=== PATIENT | male | born 1955 | race African-American/Black ===

== ENCOUNTER 2018-05-04 09:50 | Emergency (ER) | payer OTHER ==
--- NOTE | 2018-05-04 10:21 | RAD ---
PORTABLE CHEST 1 VIEW: Date: 05/04/18 Time: 0915 hours HISTORY: Chest pain. FINDINGS: The heart size is normal. The lungs are expanded without focal areas of consolidation, pneumothorax, or pleural effusions. IMPRESSION: No radiographic evidence of acute cardiopulmonary process. POS: [facility]
[2018-05-04 10:29] LABS: #Basophils 0.1 thou/uL (0.0-0.2); #Lymphocytes 1.1 thou/uL (1.20-3.40); #Monocytes 0.9 thou/uL (0.11-0.59); %Basophils 0.8 % (0.0-1.0); %Eosinophils 0.5 % (0.0-10.0); %Monocytes 10.9 % (0.0-10.0); %Neutrophils 73.8 % (42.0-75.0); Hemoglobin 16.7 g/dL (14.0-18.0); Mean Corpuscular HGB CONC 32.1 g/dL (32.0-36.0); Mean Corpuscular Hemoglobin 29.6 pg (27.0-31.0); Mean Corpuscular Volume 92.2 fL (78.0-98.0); Mean Platelet Volume 8.4 fL (7.4-10.4); Platelet Count 248 thou/uL (130-400); RBC Distribution Width 13.1 % (11.5-14.5); Red Blood Cell (RBC) Count 5.63 mill/uL (4.70-6.10); White Blood Cell (WBC) Count 8.1 thou/uL (4.8-10.8)
[2018-05-04 10:49] LABS: ALT (SGPT) 12 U/L (8-55); AST (SGOT) 14 U/L (5-34); Alkaline Phosphatase 75 U/L (40-150); Anion Gap 10 mmol/L (10-20); BUN (Urea Nitrogen) 13 mg/dL (8.4-25.7); Bilirubin, Total 0.7 mg/dL (0.2-1.2); CK (CPK) 141 U/L (30-200); Calc. Creatinine Clearance 0 mL/min (70-130); Calcium 9.1 mg/dL (7.8-10.44); Carbon Dioxide 27 mmol/L (23-31); Chloride 107 mmol/L (98-107); Estimated GFR-MDRD 69; Globulin 3.7 g/dL (2.4-3.5); Glucose 100 mg/dL (80-115); Potassium 4.2 mmol/L (3.5-5.1); Protein, Total 7.7 g/dL (5.8-8.1); Sodium 140 mmol/L (136-145)
[2018-05-04 11:00] LABS: CKMB 2.3 ng/mL (0-6.6); Troponin I Less than 0.010 ng/mL (< 0.028)
--- NOTE | 2018-05-04 13:30 | CT ---
CT PULMONARY ANGIOGRAM WITH IV CONTRAAST AND 3D POSTPROCESSING: Date: 05/04/18 HISTORY: Chest pain. FINDINGS: There is good contrast opacification of the pulmonary arterial vasculature without filling defects to suggest pulmonary embolism. There are vascular calcifications without evidence of aneurysmal dilatat ion of the thoracic aorta. No pleural or pericardial effusions are seen. No pneumothoraces or focal a reas of consolidation are identified. There are degenerative changes in the spine. A small hiatal her varsha is present. IMPRESSION: No CT evidence of pulmonary embolism. POS: [facility]
[2018-05-04 13:59] LABS: Troponin I Less than 0.010 ng/mL (< 0.028)
[2018-05-04] MEDS ORDERED: Iopamidol 370 76% 100 ML VIAL ONE (14:21)
--- NOTE | 2018-05-07 23:07 | EKG ---
Test Reason : CP Blood Pressure : / mmHG Vent. Rate : 079 BPM Atrial Rate : 079 BPM P-R Int : 144 ms QRS Dur : 122 ms QT Int : 438 ms P-R-T Axes : 051 -33 127 degrees QTc Int : 502 ms Sinus rhythm with frequent Premature ventricular complexes Left axis deviation Non-specific intra-ventricular conduction delay T wave abnormality, consider lateral ischemia Abnormal ECG Confirmed by NELDA KNAPP ([id number]), dictionary editor ANIKET VALDES ([id number]) on 05/07/2018 11:07:16 PM Referred By: Confirmed By:NELDA KNAPP
== END 2018-05-04 14:29 | disposition home or self-care (01) ==
LOC: ERS 09:50
DX: R07.9 Chest pain, unspecified (principal); E03.9 Hypothyroidism, unspecified; I10 Essential (primary) hypertension; Z87.891 Personal history of nicotine dependence; Z79.899 Other long term (current) drug therapy
CPT/HCPCS: 36415; 71045; 71275; 80053; 82553; 84484; 85025; 85379; 93005